=== PATIENT | female | born 2000 ===

== ENCOUNTER 2024-09-12 12:55 | Outpatient (CLI) | payer OTHER | END 2024-09-12 13:00 | disposition home or self-care (01) | LOC: PRENATAL 12:55 | PROVIDERS: ATTEND Obstetrics & Gynecology Maternal & Fetal Medicine | DX: O36.80X0 Pregnancy with inconclusive fetal viability, not applicable or unspecified (principal); Z36.82 Encounter for antenatal screening for nuchal translucency; O30.90 Multiple gestation, unspecified, unspecified trimester; O24.419 Gestational diabetes mellitus in pregnancy, unspecified control; Z3A.14 14 weeks gestation of pregnancy ==

== ENCOUNTER → 2024-10-22 11:57 | Outpatient (CLI) | payer OTHER | END | disposition home or self-care (01) | LOC: PRENATAL 11:57 | PROVIDERS: ATTEND Obstetrics & Gynecology Maternal & Fetal Medicine | DX: O44.00 Complete placenta previa NOS or without hemorrhage, unspecified trimester (principal); O30.90 Multiple gestation, unspecified, unspecified trimester; O24.419 Gestational diabetes mellitus in pregnancy, unspecified control; Z3A.20 20 weeks gestation of pregnancy ==